=== PATIENT | male | born 1995 | race Caucasian/White ===

== ENCOUNTER 2023-12-04 18:22 | Emergency (ER) | payer BC, SELFPAY ==
[2023-12-04 18:29] VITALS: BP 151/97; PULSE 63; TEMP 36.5; O2SAT 97; BMI 27.3
[2023-12-04] MEDS: BENZOCAINE 30 ML, lidocaine HCL 15 ML MM (18:57)
--- NOTE | 2023-12-04 19:01 | ED.DENTAL1 ---
HPI - Dental/Oral General Chief complaint: Dental/Oral Stated complaint: DENTAL PROBLEM Time Seen by Provider: 12/04/23 18:34 Source: patient Mode of arrival: walk-in Limitations: no limitations History of Present Illness HPI Narrative: Patient is a 28-year-old male who presents to the emergency department for increasing pain for the last week over tooth #20. He states he had a previous root canal as a child. He states he believes he has an abscess under that area. No redness or swelling under the tongue. No drainage from the tooth. No fevers or vomiting. Related Data Previous Rx's ?Medication ?Instructions ?Recorded amoxicillin 500 mg capsule 500 mg PO TID 10 days #30 caps 12/04/23 ketorolac 10 mg tablet 10 mg PO TID PRN pain #10 tabs 12/04/23 Allergies Allergy/AdvReac Type Severity Reaction Status Date / Time No Known Drug Allergies Allergy Verified 12/04/23 18:33 Review of Systems ROS Constitutional Denies: fever or chills Ears, nose, mouth, and throat Denies: throat pain or nasal congestion Respiratory Denies: shortness of breath Gastrointestinal Denies: nausea or vomiting Musculoskeletal Denies: back pain Integumentary/Breast Denies: rash Neurological Reports: headache Hematologic/Lymphatic Denies: easy bruising or easy bleeding Exam Narrative Exam Narrative: Gen.: Awake, alert, in no distress Head: Normocephalic, atraumatic ENT: Moist mucous membranes, Tooth #20 with gamez discoloration to the lateral side of the tooth. No redness or swelling under the tongue. No visible abscess.No trismus or drooling. Clear speech. No mandibular or maxillary Respiratory: No respiratory distress Extremities: Moves extremities equally Psych: Normal mood and affect Neuro: No focal neuro deficit Skin: Warm, dry, intact Constitutional Vital Signs, click to edit/add: Last Vital Signs Temp 97.7 F 12/04/23 18:29 Pulse 63 12/04/23 18:29 Resp 18 12/04/23 18:29 BP 151/97 H 12/04/23 18:29 Pulse Ox 97 12/04/23 18:29 O2 Del Method Room Air 12/04/23 18:29 Course Vital Signs Vital signs: Vital Signs Temperature 97.7 F 12/04/23 18:29 Pulse Rate 63 12/04/23 18:29 Respiratory Rate 18 12/04/23 18:29 Blood Pressure 151/97 H 12/04/23 18:29 Pulse Oximetry 97 12/04/23 18:29 Oxygen Delivery Method Room Air 12/04/23 18:29 Temperature 97.7 F 12/04/23 18:29 Pulse Rate 63 12/04/23 18:29 Respiratory Rate 18 12/04/23 18:29 Blood Pressure 151/97 H 12/04/23 18:29 Pulse Oximetry 97 12/04/23 18:29 Oxygen Delivery Method Room Air 12/04/23 18:29 MDM - Dental/Oral MDM Narrative Medical decision making narrative: Patient treated for possible dental infection. No evidence of abscess at this time. Airway is widely open and intact, clear speech in the ER. Vital signs are stable. He is started on topical analgesia, NSAIDs and antibiotics for home. Follow-up with dentist and return to the ER if symptoms change or worsen Medical Records Attestation: I reviewed the patient's medical records. Discharge Plan Discharge Stand Alone Forms: Portal Instructions Chief Complaint: Dental/Oral Clinical Impression: Toothache Patient Disposition: Home, Self-Care Time of Disposition Decision: 18:59 Condition: Good Prescriptions / Home Meds: New amoxicillin 500 mg capsule 500 mg PO TID 10 Days Qty: 30 0RF ketorolac 10 mg tablet 10 mg PO TID PRN (Reason: pain) Qty: 10 0RF Print Language: [place] Instructions: Toothache (ED) Referrals: Physician,Non-Staff, MD [Primary Care Provider] - 1 week
== END 2023-12-04 19:08 | disposition home or self-care (01) ==
PROVIDERS: Emergency Provider Emergency Medicine
DX: K08.89 Other specified disorders of teeth and supporting structures (principal)
CPT/HCPCS: 99283